=== PATIENT | male | born 1985 | race Caucasian/White ===

== ENCOUNTER 2021-01-10 05:47 | Day surgery (SDC) | payer BC, SELFPAY ==
[2021-01-10] VITALS (8 sets, daily range): BP systolic 109–149; BP diastolic 68–94; PULSE 56–79; RESP 16–18; TEMP 35.7–36.7; O2SAT 94–99; BMI 24.3
[2021-01-10] MEDS: Lactated Ringers 1,000 ML 100 ML IV (06:34)
[2021-01-10] MEDS: Cefazolin 2 GM in 0.9% Normal Saline 100 ML IV (07:45)
--- NOTE | 2021-01-10 07:50 | HP.PCM_ITS ---
History and Physical Date of Admission: 01/10/21 Date of Service: 12/30/20 MR#:[id number]: KATARINA ALVARADO [facility] #:[id number]:[id number] Provider:Dr. Vic Solomon, Age/Sex: 35/M Location:[facility] [place]:Signed Intake Intake Visit Reasons: RIGHT KNEE Allergies No Known Allergies Allergy (Verified 12/30/20 10:35) Medications NK 12/23/20 [History Confirmed 12/30/20] [facility] Surgical History (Updated 12/23/20 @ 11:13 by Kena Daily) History of elbow surgery HPI RIGHT KNEE Details: Parts of this documentation were recorded by a scribe, this documentation accurately reflects the service provided and the decisions made by me, Dr. Vic Solomon, 12/30/20 1031. KATARINA ALVARADO is a 35 year old M here today for review of his MRI of his right knee. Patient had an MRI done through [facility] on 12/24/20. Patient brought in imaging disc with him today. DOI: 12/20/2020. Patient is currently ambulating with crutches. To recall patient was getting up from a squatted position felt a painful pop. Patient states some of his pain has gotten relieved. Patient states it is usually after his knee pops, and feels like the pressure releases. Patient states he is taking ibuprofen once, takes 2 tablets p.o. daily. Patient will usually use ice packs in the evening. Patient denies any previous surgery with his right knee, however he admits tore his medial meniscus and MCL in 2001 that did not require surgery, only physical therapy. Patient voiced he would like to proceed with fixing his right knee. ROS Musc Reports system reviewed and no additional complaints, except as documented and Reports as per HPI Ortho Exam General General: Yes no acute distress and Yes well groomed Neurologic: Yes alert and Yes oriented x3 Psychologic: Yes reasonable and appropriate Right Knee Skin/Wound: No erythema, No ecchymosis and Yes swelling Knee ROM: No ROM-Extension -20 to 0 (-22) and No ROM-Flexion 0-140 (100) Examination: Yes Med jt line tenderness, No Lat jt line tenderness and Yes Nathaly's Test Stability: NML: Anterior Drawer, NML: Posterior Drawer, NML: Valgus 0, NML: Valgus 30, NML: Varus 0 and NML: Varus 30 Patella Translation: 1 Patella Grind: No KNEE: no joint effusion Left Knee Patella Translation: 1 Supplemental Info 12/27/2020 MRI right knee on disc from [facility] radiology: Bucket- handle type tear medial meniscus moderate to high-grade medial femoral condyle cartilage loss mild fissuring of patellofemoral cartilage Coding Level of Care Code Off vis,est,level 3 Diagnoses Right knee pain M25.561 Chronicity: acute Internal derangement of right knee M23.91 Bucket handle tear of medial meniscus of knee S83.211D Tear current or old: current Encounter type: subsequent encounter Laterality: right Right knee DJD M17.11 Osteoarthritis type: primary Assessment and Plan Assessment and Plan (1) Right knee pain: Status: Acute Qualifiers: Chronicity: acute Qualified Code(s): M25.561 - Pain in right knee (2) Internal derangement of right knee: Status: Acute (3) Bucket handle tear of medial meniscus of knee: Status: Acute Qualifiers: Tear current or old: current Encounter type: subsequent encounter Laterality: right Qualified Code(s): S83.211D - Bucket-handle tear of medial me niscus, current injury, right knee, subsequent encounter (4) Right knee DJD: Status: Acute Qualifiers: Osteoarthritis type: primary Qualified Code(s): M17.11 - Unilateral primary osteoarthritis, right knee Plan - Dr. Vic Solomon, DO: Personally reviewed the patient's medical history, medications, surgeries and recent exams if available. Advised patient he did tear his medial meniscus, and is pretty significant bucket-handle type tear. In addition to cartilage wear of the posterior medial compartment We discussed arthroscopic surgical surgery of partial meniscectomy versus repair risk benefits alternatives and postoperative courses for both procedures reviewed. Explained this will be based on intraoperative findings whether or not it is repairable. He understands significant increase in recovery time for repair and does wish it to be repaired if possible. Explained if it is repairable, we try to save the meniscus if possible. Down side to repairing it, patient needs to be six weeks of non-weight bearing. No squatting, lunges, no impact and no lifting for three months post-op. Patient would have to be compliant with this d/t risk of re-tearing. Recovery after this time period, will be as tolerated. First six weeks, patient cannot perform full flexion of his right knee. Explained it will take awhile for his tissue to re-mature and generate. Explained if we perform a partial meniscectomy, no physical therapy is needed. If repair, six weeks patient will perform at home exercises. Patient would like to proceed with surgical intervention. Explained patient will have to continue ambulating with his crutches. Advised to keep his knee moving. Risks, benefits and alternatives of surgery reviewed including risk of bleeding, infection, nerve, artery and/or tissue damage continued pain or symptoms and expected post-operative course. Discussed patient will have a right knee arthroscopy. Discussed patient will need to d/c his ibuprofen 7 days prior to surgery. All questions answered. Patient in agreement of plan. Follow up two weeks post-op or sooner if pain, swelling, numbness or associated symptoms, or concerns develop. 12/30/20 1200<Electronically signed by Vic Solomon DO>Date Vic Solomon DO I have re-examined the patient. There are no clinical changes since date of exam
[2021-01-10] MEDS: Epinephrine (1 mg/ml) 1 MG/ML VIAL (08:05)
[2021-01-10] MEDS: Lidocaine 1% /Epi 1:100 (20ml) 20 ML Vial (08:05)
[2021-01-10] MEDS: Bupivacaine Mpf 0.5% 30 ML VIAL (09:10)
--- NOTE | 2021-01-10 09:13 | OP.PCM_ITS ---
Report of Operation Date of Procedure: 01/10/21 Description of Surgical Findings:: Preop diagnosis: Right knee bucket-handle medial meniscal tear , DJD Postoperative diagnosis: Right knee bucket-handle tear medial meniscus grade III chondromalacia medial femoral condyle and patella grade 2 lateral femoral condyle Implants: 360 FasT-Fix all inside meniscal repair device x4 [employer], Procedure: Right knee medial meniscus repair Anesthesia: General Estimated blood loss: 5 mL Complications: none Indication for procedure: This is a 35-year-old male healthy who had a injury getting up from a squatting position where he felt a pop and had mechanical symptoms he did have an MRI demonstrating a flipped bucket-handle medial meniscus tear the patient did wish to proceed with an elective arthroscopic surgery to attempt to alleviate the symptoms. We discussed meniscectomy versus repair and due to his age if repair was an option he did wish to proceed with this understanding the need for be toe-touch weightbearing for 6 weeks followed by six-8 more weeks of restrictions postop and not bending her knee past 90 degrees the first 6 weeks during this time . The risk benefits and alternatives of the procedure were reviewed including risk of bleeding infection nerve artery tissue damage need for further surgery continued pain and expected postoperative course. Procedure: The patient was met in the preoperative holding area. The operative extremity was identified by both patient and physician and family and marked. Patient was brought back to the operating room on a wheeled cart and transferred to the operating table in the supine position. Anesthesia was started. A well- padded tourniquet was placed on the operative extremity. A lower extremity leg kwon was secured to the operative extremity. The contralateral extremity was well-padded and the end of the bed was flexed to 90 degrees. The patient was prepped and draped in the usual sterile fashion. A timeout was called to ensure the proper patient, procedure, and extremity were being contemplated. 0.5% lidocaine with epinephrine was injected into the planned incisional areas under the skin only. An Esmarch was used to exsanguinate the extremity and the tourniquet was inflated. An 11 blade scalpel was used to make a stab incision in the anterior lateral portal. The arthroscope was inserted into the intercondylar notch and inflow and outflow tubes were attached. Arthroscopic visualization began. The medial compartment was entered. An 18-gauge spinal needle was used to establish the placement for anterior medial portal. An 11 blade scalpel was used to make a stab incision. Blunt probe was inserted followed by a meniscal probe. There is noted to be flipped medial meniscus tear that was attached both anteriorly and posteriorly the periphery was in the outer third of meniscal tissue lateral compartment was entered there is no meniscal pathology there was some grade 2 chondral wear of the lateral femoral condyle, the patellofemoral compartment was inspected there was a small area of grade 3 of the apex of the patella chondromalacia, a larger area of grade 2-3 chondromalacia of the medial femoral condyle, a meniscal rasp was used to prepare the peripheral meniscal bed as well as a spinal needle to trephinate the posterior meniscal tissue 360 FasT-Fix curved device was used to place for total stitches two horizontal and two vertical stitches were used there was extension into the anterior horn that was not able to be reached with the device and the use of a meniscal mender was used to pass a spinal needle through the peripheral and central meniscal tissue and passed a 2-0 FiberWire a second spinal needle was used with a nitinol loop and the suture was retrieved creating a horizontal mattress type stitch in the anterior horn,excellent repair was achieved wound was thoroughly irrigated. Microfracture awls were used in the intercondylar notch create some bleeding to aid in healing the medial and lateral gutters were inspected and were free of loose bodies. The knee was thoroughly irrigated and drained. An intra-articular injection with 5 cc 0.5% Marcaine plain , the arthroscope was removed the portals were closed with 3-0 nylon arthroscopic stitches. Followed by Xeroform 4 x 4's ABDs web roll and an Lucho wrap. The tourniquet was let down and the drapes were removed. All counts were correct. The patient was brought back to the PACU in stable condition.
--- NOTE | 2021-01-10 09:27 | EX.PCM.DISCH ---
Discharge Instructions Diet Discharge Diet: No restrictions Dressing / Incision Call your doctor if you observe: Shortness of breath and Chest pain Additional Dressing/Incision Instructions:: Ice and elevate next 72 hours .keep dressing on clean and dry for 48 hours then may remove begin showering daily but do not submerge in tub or pool. After shower may apply Band-Aids .Expect knee swelling,Lucho wrap may help with joint effusion. Encourage knee range of motion 0 to 60 degrees. Toe-touch weightbearing only operative extremity, If you weight-bear through the extremity can return for repair. use crutches to ensure non-weightbearing through operative extremity . No strenuous activity. When not ambulating keep iced and elevated next 72 hours. Call with any questions or concerns. Follow Up Care Test Results: Test results from this visit will be discussed in further detail at your follow-up appointment, if applicable. Discharge Plan Admission Attending Provider: Vic Solomon Primary Care Provider: Luzma Monet,Neelima Primary Discharge Orders/Prescriptions Prescriptions: New oxycodone 5 mg tablet 5 - 10 mg PO Q4H PRN (Reason: pain) 7 Days Qty: 30 RF: 0 No Action NK RF: 0 Referrals / Follow Up: Care Physician,Neelima Primary [Primary Care Provider] - Disposition Disposition (needs filled in before D/C Order can be placed): Home, Self Care
[2021-01-10] MEDS: oxyCODONE 5 MG Tablet PO (11:12)
== END 2021-01-10 11:58 | disposition home or self-care (01) ==
LOC: SDC 05:48 → AC 05:48
PROVIDERS: Referring Provider Orthopaedic Surgery; Visit Provider Orthopaedic Surgery
PROC: (CPT 29870; principal; 2021-01-10 07:10)
DX: S83.211A Bucket-handle tear of medial meniscus, current injury, right knee, initial encounter (principal); M23.91 Unspecified internal derangement of right knee; X58.XXXA Exposure to other specified factors, initial encounter; Y93.9 Activity, unspecified; Y92.9 Unspecified place or not applicable; Y99.9 Unspecified external cause status; Z20.822 Contact with and (suspected) exposure to COVID-19; M17.11 Unilateral primary osteoarthritis, right knee; Z87.19 Personal history of other diseases of the digestive system
CPT/HCPCS: 01400; 29879; 29882; 87426; C9803; J7120; J2405

== ENCOUNTER → 2021-01-24 10:00 | Outpatient (CLI) | payer BC, SELFPAY ==
--- NOTE | 2021-01-24 10:01 | VDLE_ITS ---
Reason For Study: Pain RIGHT LEFT GSV is normal. CFV is compressible, spontaneous, phasic, CFV is compressible, spontaneous, phasic, competent, and demonstrates normal competent and demonstrates normal augmentation. augmentation. FV is compressible, spontaneous, phasic, competent and demonstrates normal augmentation. POP V is compressible, spontaneous, phasic, competent and demonstrates normal augmentation. T/P Trunk is compressible. RT PerV is compressible. Acute deep vein thrombosis is noted in the right GastrocV, PTV and SoleusV. Procedure This is a venous duplex using B-mode, color flow and spectral Doppler. Exam performed in department. A preliminary report was called and/or faxed to [facility]. VL/Venous Duplex US, Unilateral Interpretation Summary Acute deep venous thrombosis right gastrocnemius, posterior tibial, and soleus veins. Patent and compressible right great saphenous vein Normal flow patterns left common femoral vein Ordering Physician: Yonatan Mcleod Performed By: Alexus Camarena RVT
== END ==
PROVIDERS: Referring Provider Physician Assistant; Visit Provider Physician Assistant
DX: M79.661 Pain in right lower leg (principal); G89.18 Other acute postprocedural pain
CPT/HCPCS: 93971

== ENCOUNTER 2021-04-21 08:02 | Outpatient (CLI) | payer BC, SELFPAY ==
--- NOTE | 2021-04-21 08:09 | VDLE_ITS ---
Reason For Study: Right leg DVT RIGHT GSV is normal. CFV is compressible, spontaneous, phasic, competent and demonstrates normal augmentation. FV is compressible, spontaneous, phasic, competent and demonstrates normal augmentation. POP V is compressible, spontaneous, phasic, competent and demonstrates normal augmentation. T/P Trunk is compressible. PTV is compressible. RT PerV is compressible. GastrocV and SoleusV are compressible. Procedure This is a venous duplex using B-mode, color flow and spectral Doppler. Exam performed in department. Compared to 01/24/21. A preliminary report was called and/or faxed to Juanito. VL/Venous Duplex US, Unilateral Interpretation Summary There is no evidence of right lower extremity deep vein thrombosis. Right great saphenous vein appears patent and compressible segmentally. Resolved right gastrocnemius and s oleus and posterior tibial vein deep venous thrombosis from the previous examination of January 24, 2021 Ordering Physician: Vic Solomon Performed By: Alexus Camarena RVT
== END 2021-04-21 23:59 | disposition short-term general hospital (02) ==
PROVIDERS: Referring Provider Orthopaedic Surgery; Visit Provider Orthopaedic Surgery
DX: Z47.89 Encounter for other orthopedic aftercare (principal); I82.409 Acute embolism and thrombosis of unspecified deep veins of unspecified lower extremity; Z79.01 Long term (current) use of anticoagulants
CPT/HCPCS: 93971

== ENCOUNTER 2021-05-05 14:18 | Outpatient (CLI) | payer BC, SELFPAY ==
[2021-05-05 15:34] LABS: Vitamin D,25 Hydroxy 27.8 ng/mL
[2021-05-05 15:38] LABS: Absolute Lymphocyte Count 1.31 X10^3/uL (0.83-4.51); Absolute Neutrophil Count 3.3 X10^3/uL (2.0-7.7); Basophil# 0.03 X10^3/uL; Basophil% 0.6 % (0-1); Eosinophil# 0.07 X10^3/uL; Eosinophils% 1.3 % (0-5); Hematocrit 47.1 % (40-54); Hemoglobin 16.6 g/dL (13.0-16.5); Lymphocyte # 1.31 X10^3/ul (0.83-4.51); Lymphocyte % 24.9 % (19-41); Mean Corp Hgb Conc 35.2 g/dL (32-36); Mean Corpuscular Hgb 29.4 pg (27.0-32.0); Mean Corpuscular Volume 83.4 fL (80-94); Mean Platelet Vol. 11.3 fl (6.2-12.0); Monocyte# 0.55 X10^3/uL; Monocyte% 10.4 % (0-10); NRBC Flagged by Analyzer 0 % (0-5); Neutrophil # 3.29 X10^3/uL (2.7-7.7); Neutrophil % 62.4 % (47-70); Platelet Count 162 K/mm3 (150-450); RBC Distribution Width CV 12.1 % (11.6-14.6); RBC Distribution Width SD 36.4 fl (35.1-43.9); Red Blood Count 5.65 M/mm3 (4.6-6.2); White Blood Count 5.3 K/mm3 (4.4-11.0)
[2021-05-05 15:39] LABS: ALB/GLOB Ratio 1.2 RATIO (0.9-2.4); AST(SGOT) 18 U/L (15-37); Alanine Aminotransfer ALT/SGPT 26 U/L (16-61); Alkaline Phosphatase 78 U/L (45-117); Anion Gap 6 (5-15); BUN 13 mg/dL (7-18); BUN/Creat Ratio 17.2 RATIO (10-20); Calcium,Total 8.9 mg/dL (8.5-10.1); Chloride 105 mmol/L (98-107); Cholesterol 236 mg/dL (200); Creatinine, Serum 0.76 mg/dL (0.70-1.30); EST Glomerular Filtration Rate 123 mL/min (>60); Est Glom Filt Rate - Afr Amer 149 mL/min (>60); Globulin 3.4 g/dL (2.2-4.2); Glucose 79 mg/dL (74-106); High Density Lipoprotein 78 mg/dL; PSA,Total - Annual Screen 0.34 ng/mL (0.00-4.00); Potassium 4.1 mmol/L (3.5-5.1); Protein, Total 7.4 g/dL (6.4-8.2); Sodium Level 141 mmol/L (136-145); Triglycerides 45 mg/dL; Very Low Density Lipoprotein 9 mg/dL (5-40)
[2021-05-05 15:48] LABS: Hemoglobin A1c 5.1 % (3.8-5.6)
== END 2021-05-05 23:59 | disposition home or self-care (01) ==
LOC: BIMLAB 14:19
PROVIDERS: PCP Internal Medicine; Referring Provider Internal Medicine; Visit Provider Internal Medicine
DX: Z00.00 Encounter for general adult medical examination without abnormal findings (principal); E55.9 Vitamin D deficiency, unspecified; Z13.220 Encounter for screening for lipoid disorders; Z13.1 Encounter for screening for diabetes mellitus
CPT/HCPCS: 36415; 80053; 80061; 82306; 83036; 84153; 85025; G0103

== ENCOUNTER → 2022-08-14 | Outpatient (CLI) | payer BC, SELFPAY ==
[2022-08-14 11:44] LABS: Erythrocyte Sedimentation Rate 1 mm/hr (0-20)
[2022-08-14 11:54] LABS: Absolute Lymphocyte Count 1.28 X10^3/uL (0.83-4.51); Absolute Neutrophil Count 2.9 X10^3/uL (2.0-7.7); Basophil# 0.03 X10^3/uL; Basophil% 0.6 % (0-1); Eosinophil# 0.06 X10^3/uL; Eosinophils% 1.3 % (0-5); Hematocrit 44.8 % (40-54); Hemoglobin 15.4 g/dL (13.0-16.5); Lymphocyte # 1.28 X10^3/ul (0.83-4.51); Lymphocyte % 27.1 % (19-41); Mean Corp Hgb Conc 34.4 g/dL (32-36); Mean Corpuscular Volume 84.4 fL (80-94); Mean Platelet Vol. 11.3 fl (6.2-12.0); Monocyte% 10.6 % (0-10); NRBC Flagged by Analyzer 0 % (0-5); Neutrophil # 2.85 X10^3/uL (2.7-7.7); Neutrophil % 60.2 % (47-70); Platelet Count 180 K/mm3 (150-450); RBC Distribution Width CV 12.4 % (11.6-14.6); RBC Distribution Width SD 37.8 fl (35.1-43.9); Red Blood Count 5.31 M/mm3 (4.6-6.2); White Blood Count 4.7 K/mm3 (4.4-11.0)
[2022-08-14 12:09] LABS: ALB/GLOB Ratio 1.3 RATIO (0.9-2.4); AST(SGOT) 21 U/L (15-37); Alanine Aminotransfer ALT/SGPT 30 U/L (16-61); Albumin, Serum 3.9 g/dL (3.2-5.0); Alkaline Phosphatase 82 U/L (45-117); Anion Gap 8 (5-15); BUN 14 mg/dL (7-18); BUN/Creat Ratio 15.5 RATIO (10-20); CRP < 2.90 mg/L (0.0-3.0); Chloride 107 mmol/L (98-107); EST Glomerular Filtration Rate 100 mL/min (>60); Est Glom Filt Rate - Afr Amer 121 mL/min (>60); Glucose 99 mg/dL (74-106); LDH 156 U/L (87-241); Protein, Total 6.9 g/dL (6.4-8.2); Sodium Level 143 mmol/L (136-145)
[2022-08-18 14:09] LABS: Anti-Centromere B Ab <0.2 AI (0.0-0.9); Anti-Chromatin <0.2 AI (0.0-0.9); Anti-Jo <0.2 AI (0.0-0.9); Anti-Scleroderma-70 AB <0.2 AI (0.0-0.9); Anti-dsDNA Ab 1 IU/mL (0-9); RNP Ab <0.2 AI (0.0-0.9); SJOGREN'S Anti-SS-A test < 0.2 AI (0.0-0.9); SJOGREN'S Anti-SS-B test < 0.2 AI (0.0-0.9); Smith Ab <0.2 AI (0.0-0.9)
[2022-08-18 15:08] LABS: Endomysial Antibody IgA Negative (Negative); Immunoglobulin A 224 mg/dL (90-386); t-Transglutaminase IgA <2 U/mL (0-3)
[2022-08-20 10:09] LABS: Albumin 3.9 g/dL (2.9-4.4); Alpha-1-Globulins 0.4 g/dL (0.0-0.4); Alpha-2-Globulins 0.7 g/dL (0.4-1.0); Cytoplasmic Ab (C-ANCA) <1:20 titer (Neg:<1:20); Gamma Globulin 0.6 g/dL (0.4-1.8); Immunoglobulin A 239 mg/dL (90-386); Immunoglobulin E 22 IU/mL (6-495); Immunoglobulin G 798 mg/dL (603-1613); Immunoglobulin M 44 mg/dL (20-172); PROEL- TOTAL PROTEIN 6.7 g/dL (6.0-8.5); Perinuclear Ab (P-ANCA) <1:20 titer (Neg:<1:20)
== END | disposition home or self-care (01) ==
LOC: LAB 11:16
PROVIDERS: PCP Internal Medicine; Referring Provider Internal Medicine Gastroenterology; Visit Provider Internal Medicine Gastroenterology
DX: Z87.19 Personal history of other diseases of the digestive system (principal)
CPT/HCPCS: 36415; 80053; 82784; 82785; 83516; 83615; 84165; 85025; 85652; 86140; 86225; 86235; 86255; 86256; 86334

== ENCOUNTER 2022-12-07 05:32 | Day surgery (SDC) | payer BC, SELFPAY ==
--- NOTE | 2022-12-07 | COLBX_PTH ---
PATIENT: KATARINA ALVARADO LOC: EN U#:[id number] AGE/SX: 37/M ROOM: RE12/07/[address]: Dr. Dave Shah DO : 1985 BED: DIS: 12/07/2022 SPEC #: [id number] RECD: 12/07/22 12:10 STATUS: SANDRITA NELIDA #: [id number] VALERY: 12/07/22 00:[address]: Dave Shah DEPT: SURGICAL PATHOLOGY RECD BY: Be Chen ENTERED: 12/07/22 12:10 SP TYPE: COLON BX KERVIN DR: Dr. Temitope Bosch MD Tissues: A - Ileum, NOS B - COLON BIOPSY Procedures: Surgery Specimen Level IV HEADER OPERATION: Colonoscopy (MAC) with biopsies PRE-OP DIAGNOSIS: History of Crohn's disease and colon polyps TISSUE SUBMITTED: A - Terminal ileum biopsy, B - Random colon biopsy MICROSCOPIC DIAGNOSIS A. Terminal ileum, biopsy: Fragments of small intestinal mucosa, no pathologic diagnosis. B. Colon, random biopsy: Fragments of colonic mucosa, no pathologic diagnosis. JEZ:[email or web address] 12/08/2022 MICROSCOPIC DESCRIPTION Slides are reviewed. GROSS DESCRIPTION A - Received in fixative is one container labeled with the patient's name and designated terminal ileum biopsy. The specimen consists of multiple irregular fragments of light gann soft tissue that in aggregate measure 1.0 x 0.3 x 0.1 cm. The specimen is totally submitted in one cassette. B - Received in fixative is one container labeled with the patient's name and designated random colon biopsy. The specimen consists of multiple irregular fragments of light gann soft tissue that in aggregate measure 1.2 x 0.4 x 0.1 cm. The specimen is totally submitted in one cassette. / JEZ:[email or web address] 12/07/2022 TC:4 CPT: 49416 x2
[2022-12-07] MEDS: Lactated Ringers 1,000 ML 15 ML IV (05:45)
[2022-12-07 05:55] VITALS: BP 125/74; PULSE 645; RESP 18; TEMP 36.6; O2SAT 100; BMI 23.8
--- NOTE | 2022-12-07 06:27 | HP.PCM_ITS ---
History and Physical Date of Admission: 12/07/22 37 M who presents to the office today for PCP OV 05.18.22 noting history of Crohn?s disease. Previously established with TAW[facility] and Dr. Shaw. History of colonoscopy initially with Dr. Shaw and then with TAWAN[facility]. Reports Crohn?s is in remission. ? Colonoscopy [facility] 09.12.14 altered vascular and erythematous mucosa of rectum. No path changes. *[facility] 08.14.22 Crohn?s has been in remission with use of diet and lifestyle changes. He did not utilize any medications. Denies active symptoms or EIM at this time. ROS Const Constitutional: Positive for headache(s); No body ache, chills, excessive sweating, fatigue, fever(s), frequent falls, snoring, weakness, weight change, sleep problems or change in appetite Eyes Eyes: No blurry vision, change in vision, eye pain or Light sensitivity ENT ENT: Positive for headache(s); No abnormal hearing, ear or mastoid pain, tinnitus, nasal congestion, neck pain or sore throat Resp Respiratory: No cough, shortness of breath, snoring or wheezing Cardio Cardiology: No chest pain at rest, chest pain with exertion, excessive sweating, shortness of breath, dyspnea on exertion, lightheadedness, orthopnea or palpitations Gastro GI: No abdominal pain, change in bowel habits, constipation, cramping, diarrhea, Vomiting blood/hematemesis, vomiting or other Genitourinary Male: No burning urination, painful urination, urinary incontinence or blood in urine Musc Musculoskeletal: No abnormal gait, joint pain, back pain, limited range of motion, neck pain, numbness or tingling Skin Skin: Positive for other (dry area on scalp); No dry skin, redness, lesions, itchy eyes, rash or wounds Breast Breast: No change in breast shape, breast lump, breast pain, breast skin changes, breast swelling, nipple discharge or other Neuro Neurology: Positive for headache(s); No abnormal gait, abnormal hearing, abnormal speech, dizziness, weakness, frequent falls, memory loss, numbness or tingling Psych Psychiatric: No anxiety, No change in appetite, No depression, No memory loss and No Thoughts of harming yourself/Others Endo Endocrine: No cold intolerance, excessive sweating, fatigue, flushing, heat intolerance, increased thirst/drinking, increased hunger or weight change Aller/Imm Allergy/Immunologic: No itchy eyes, seasonal allergy symptoms, hives or wheezing William/Lymp Hematologic/Lymphatic: No easy bleeding, easy bruising, enlarged lymph nodes or other Exam Const General: cooperative and comfortable Nutritional Appearance: average body habitus and well nourished [facility] Head: normal to inspection Ears: hearing grossly normal bilaterally Nose: external nose normal Face and sinus: normal facial exam Mouth: oral mucosae normal Throat: posterior oropharynx normal Eyes General: appearance normal, both eyes and all related structures Neck Neck: normal visual inspection Chest Chest palpation & inspection: normal inspection of the chest and normal palpation of entire chest wall Resp Effort & Inspection: normal respiratory effort Auscultation: Bilateral: Clear to Auscultation Cardio Palpation: normal PMI Rate: regular rate Rhythm: regular rhythm GI Inspection: normal to inspection Auscultation: normal bowel sounds Percussion: normal to percussion Palpation: no hepatosplenomegaly Skin General: no rashes or lesions noted Neuro General: patient alert Extrem General: normal to inspection Psych Affect: normal affect Quality Reporting Tobacco Screening ([facility]) Smoking Status: Never smoker Assessment and Plan Assessment and Plan (1) History of Crohn's disease: Status: Chronic Comment: REMISSION Plan: Patient had a colonoscopy back in 2007 and had some ulcerations that were in the terminal ileum and and in the rectum. He was given a diagnosis of inflammatory bowel disease and in particular Crohn's disease. He did not take any medicines for the Crohn's disease. He was only given the option of medicines in order to treat his inflammatory bowel disease. He chose to change his diet and he says it put him into remission and has not had any symptoms since. He had a follow- up colonoscopy in 2014 was did not show any inflammation at the time and there were no polyps seen at that time. His first colonoscopy revealed colon polyps in the sigmoid and rectum and the patient's were told that they were inflammatory polyps but they were precancerous polyps. He has not had any diarrhea at this time. He is not having any bleeding per rectum. He is not having abdominal pain, indigestion, skin rashes, eye abnormalities or arthritis present at this current day. I am not sure if he has inflammatory bowel disease. We will get biochemical work-up including ESR, CRP, autoimmune antibodies including ANCA antibodies and antineutrophilic antibody. For antibodies associated with inflammatory bowel disease. (2) History of colon polyps: Status: Acute Plan: I will try to find pathology from his previous colonoscopy back in 2007. If he truly did have adenomatous polyps. He will need a surveillance colonoscopy because it has been about 8 years since his last colonoscopy. Orders: Orders Comprehensive Metabolic Profil Today Z87.19 - Personal history of other diseases of the digestive system CRP Today Z87.19 - Personal history of other diseases of the digestive system LDH Today Z87.19 - Personal history of other diseases of the digestive system CBC W/Diff, Automated Today Z87.19 - Personal history of other diseases of the digestive system Erythrocyte Sed Rate Today Z87.19 - Personal history of other diseases of the digestive system LESLIE Comprehensive Panel Today Z87.19 - Personal history of other diseases of the digestive system ANCA Today Z87.19 - Personal history of other diseases of the digestive system Celiac Disease Profile Today Z87.19 - Personal history of other diseases of the digestive system Immunoglobulins G/A/M/E Today Z87.19 - Personal history of other diseases of the digestive system FISH + Protein Elect, Serum Today Z87.19 - Personal history of other diseases of the digestive system Miscellaneous Lab Procedure Today Z87.19 - Personal history of other diseases of the digestive system I have examined the patient and the H&P has been reviewed. There are no clinical changes since date of exam.
[2022-12-07 07:00] VITALS: BP 115/72; BP 125/74; PULSE 51; RESP 18; TEMP 36.4; O2SAT 100
--- NOTE | 2022-12-07 07:03 | OP.CCLET_ITS ---
12/07/2022 Temitope Bosch [facility] [address] [place] [address] Re : Colonoscopy procedure for Benja Govea Dear Dr. Bosch This procedure was performed on Wednesday, December 07, 2022. My impressions and recommendations are as follows: Impressions : - The entire examined colon is normal. Biopsied. - The examined portion of the ileum was normal. Biopsied. Recommendations : - Discharge patient to home. - Resume previous diet. - Continue present medications. - Await pathology results. - Repeat colonoscopy in 5 years for surveillance. My findings are described in the full procedure note, which is enclosed. If I can be of further assistance, please feel free to contact me at . Sincerely, Dave Shah, 12/07/2022 7:02:34 AM This report has been signed electronically.
--- NOTE | 2022-12-07 07:03 | OP.COLON_ITS ---
Patient Name: Benja Govea Procedure Date: 12/07/2022 6:22 AM Date of : 1985 Age: 37 Procedure: Colonoscopy Indications: Suspected Crohn's disease of the colon Providers: Dave Shah DO Medicines: Monitored Anesthesia Care Patient Profile: This is a 37 year old male. Refer to note in patient chart for documentation of history and physical. Last Colonoscopy: 5 years ago. Complications: No immediate complications. Procedure: Pre-Anesthesia Assessment: - Prior to the procedure, a History and Physical was performed, and patient medications and allergies were reviewed. The patient is competent. The risks and benefits of the procedure and the sedation options and risks were discussed with the patient. All questions were answered and informed consent was obtained. Patient identification and proposed procedure were verified by the physician in the pre-procedure area. Mental Status Examination: alert and oriented. Airway Examination: normal oropharyngeal airway and neck mobility. Respiratory Examination: clear to auscultation. CV Examination: normal. Prophylactic Antibiotics: The patient does not require prophylactic antibiotics. Prior Anticoagulants: The patient has taken no anticoagulant or antiplatelet agents. After reviewing the risks and benefits, the patient was deemed in satisfactory condition to undergo the procedure. The anesthesia plan was to use monitored anesthesia care (MAC). Immediately prior to administration of medications, the patient was re-assessed for adequacy to receive sedatives. The heart rate, respiratory rate, oxygen saturations, blood pressure, adequacy of pulmonary ventilation, and response to care were monitored throughout the procedure. The physical status of the patient was re-assessed after the procedure. After I obtained informed consent, the scope was passed under direct vision. Throughout the procedure, the patient's blood pressure, pulse, and oxygen saturations were monitored continuously. The Colonoscope was introduced through the anus and advanced to the terminal ileum. The colonoscopy was performed without difficulty. The patient tolerated the procedure well. The quality of the bowel preparation was adequate. The terminal ileum, ileocecal valve, appendiceal orifice, and rectum were photographed. Scope In: 6:40:46 AM Scope Withdrawal Time 0 hours 9 minutes 16 seconds Scope Out: 6:54:19 AM Total Procedure Duration Time 0 hours 13 minutes 33 seconds Findings: The perianal and digital rectal examinations were normal. The colon (entire examined portion) appeared normal. Biopsies for histology were taken with a cold forceps from the ascending colon, right colon, left colon, transverse colon, right transverse colon, left transverse colon, descending colon, sigmoid colon and rectum for evaluation of microscopic colitis. The terminal ileum appeared normal. Biopsies were taken with a cold forceps for histology. Verification of patient identification for the specimen was done. Estimated blood loss was minimal. External and internal hemorrhoids were found during retroflexion. The hemorrhoids were small. Impression: - The entire examined colon is normal. Biopsied. - The examined portion of the ileum was normal. Biopsied. Recommendation: - Discharge patient to home. - Resume previous diet. - Continue present medications. - Await pathology results. - Repeat colonoscopy in 5 years for surveillance. Procedure Code(s): --- Professional --- 95489, Colonoscopy, flexible; with biopsy, single or multiple CPT copyright 2021 [employer]. All rights reserved. The codes documented in this report are preliminary and upon physician coder review may be revised to meet current compliance requirements. Dave Shah DO 12/07/2022 7:02:34 AM This report has been signed electronically. Number of Addenda: 0 Note Initiated On: 12/07/2022 6:22 AM
[2022-12-07 07:05] VITALS: BP 112/71; BP 125/74; PULSE 56; RESP 18; O2SAT 100
[2022-12-07 07:10] VITALS: BP 111/70; BP 125/74; PULSE 47; RESP 18; O2SAT 100
[2022-12-07 07:14] VITALS: BP 123/71; BP 125/74; PULSE 51; RESP 18; TEMP 36.5; O2SAT 100
[2022-12-07 07:25] VITALS: BP 125/74
== END 2022-12-07 07:29 | disposition home or self-care (01) ==
LOC: EN 05:32 → AC 05:34
PROVIDERS: PCP Internal Medicine; Referring Provider Internal Medicine Gastroenterology; Visit Provider Internal Medicine Gastroenterology
PROC: 0DJD8ZZ Inspection of Lower Intestinal Tract, Via Natural or Artificial Opening Endoscopic (ICD-10-PCS; CPT 45378; principal; 2022-12-07 06:25)
DX: K64.4 Residual hemorrhoidal skin tags (principal); K64.8 Other hemorrhoids; R51.9 Headache, unspecified; Z86.010 Personal history of colon polyps; Z87.19 Personal history of other diseases of the digestive system
CPT/HCPCS: 45380; 88305; J7120; J2405

== ENCOUNTER → 2023-05-24 | Outpatient (CLI) | payer BC, SELFPAY ==
--- OUTSIDE RECORDS SUMMARY | 2023-05-24 08:53 | XMS RPT_ITS | CCD ---
Author Name Unknown Address [address] [place] [address] Organization [facility] Results Test Name Value Interpretation Reference Range Facil ity Summary Purpose Family History No Family History Records Found Advance Directives No Advanced Directives Records Found Additional Source Comments (unrecognized sect ion and content) No Status Records Found INFORMATION SOURCE (unrecogn ized section and content) FOR RECORDS PERTAINING TO PATIENTS WHO ARE OR HAVE BEEN ENROLLED IN A CHEMICAL DEPENDENCY/SUBSTANCEABUSE PROGRAM, SOME INFORMATION MAY BE OMITTED. This clinical summary was aggregated from multiple sources. Caution should be exercised in using it in the provision of clinical care. This summary normalizes information from multiple sources, and as a consequence, information in this document may materially change the coding, format and clinical context of patient data. In addition, data may be omitted in some cases. CLINICAL DECISIONS SHOULD BE BASED ON THE PRIMARY CLINICAL RECORDS. [employer] provides no warranty or guarantee of the accuracy or completeness of information in this document.
[2023-05-24 09:09] LABS: Absolute Lymphocyte Count 1.14 X10^3/uL (0.83-4.51); Absolute Neutrophil Count 3.7 X10^3/uL (2.0-7.7); Basophil# 0.04 X10^3/uL; Basophil% 0.7 % (0-1); Eosinophil# 0.07 X10^3/uL; Eosinophils% 1.3 % (0-5); Hematocrit 43.4 % (40-54); Hemoglobin 14.7 g/dL (13.0-16.5); Lymphocyte # 1.14 X10^3/ul (0.83-4.51); Lymphocyte % 20.6 % (19-41); Mean Corp Hgb Conc 33.9 g/dL (32-36); Mean Corpuscular Hgb 28.3 pg (27.0-32.0); Mean Corpuscular Volume 83.6 fL (80-94); Mean Platelet Vol. 10.7 fl (6.2-12.0); Monocyte# 0.54 X10^3/uL; Monocyte% 9.7 % (0-10); NRBC Flagged by Analyzer 0 % (0-5); Neutrophil # 3.73 X10^3/uL (2.7-7.7); Neutrophil % 67.3 % (47-70); Platelet Count 170 K/mm3 (150-450); RBC Distribution Width CV 12.4 % (11.6-14.6); RBC Distribution Width SD 37.2 fl (35.1-43.9); Red Blood Count 5.19 M/mm3 (4.6-6.2); White Blood Count 5.5 K/mm3 (4.4-11.0)
[2023-05-24 09:40] LABS: Vitamin D,25 Hydroxy 14.6 ng/mL
[2023-05-24 10:23] LABS: ALB/GLOB Ratio 1.2 RATIO (0.9-2.4); AST(SGOT) 24 U/L (15-37); Alanine Aminotransfer ALT/SGPT 30 U/L (16-61); Albumin, Serum 3.9 g/dL (3.2-5.0); Alkaline Phosphatase 82 U/L (45-117); Anion Gap 4 (5-15); BUN 12 mg/dL (7-18); Calcium,Total 9.2 mg/dL (8.5-10.1); Chloride 108 mmol/L (98-107); Cholesterol 196 mg/dL (200); Creatinine, Serum 0.86 mg/dL (0.70-1.30); EST Glomerular Filtration Rate 105 mL/min (>60); Est Glom Filt Rate - Afr Amer 128 mL/min (>60); Globulin 3.3 g/dL (2.2-4.2); Glucose 99 mg/dL (74-106); High Density Lipoprotein 63 mg/dL; PSA,Total - Annual Screen 0.38 ng/mL (0.00-4.00); Potassium 4.3 mmol/L (3.5-5.1); Protein, Total 7.2 g/dL (6.4-8.2); Sodium Level 139 mmol/L (136-145); Thyroid Stim Hormone (TSH) 0.64 uIU/mL (0.358-3.74); Triglycerides 66 mg/dL; Very Low Density Lipoprotein 13 mg/dL (5-40)
== END | disposition home or self-care (01) ==
LOC: LAB 08:32
PROVIDERS: PCP Internal Medicine; Referring Provider Internal Medicine; Visit Provider Internal Medicine
DX: Z00.00 Encounter for general adult medical examination without abnormal findings (principal); Z13.220 Encounter for screening for lipoid disorders; Z86.010 Personal history of colon polyps; Z87.19 Personal history of other diseases of the digestive system; Z12.5 Encounter for screening for malignant neoplasm of prostate; E55.9 Vitamin D deficiency, unspecified
CPT/HCPCS: 36415; 80053; 80061; 82306; 84153; 84443; 85025; G0103